=== PATIENT | female | born 1930 | race African-American/Black ===

== ENCOUNTER 2020-08-23 21:34 | Inpatient (IN) | payer OTHER ==
[2020-08-23] MEDS ORDERED: FUROSEMIDE 40 MG/4 ML INJECTABLE VIAL IVPUSH ONE (22:32)
[2020-08-23] MEDS ORDERED: FUROSEMIDE 40 MG/4 ML INJECTABLE VIAL ONE (22:36)
[2020-08-23 23:20] LABS: BASO % 0.9 % (0-2.0); EOS % 1.2 % (0-4.5); HEMATOCRIT 35.8 % (32.4-45.2); HEMOGLOBIN 11.1 GM/dL (10.7-15.3); LYMPH % 24.7 % (8-40); MCH 24.1 pg (25.7-33.7); MCHC 31.1 g/dl (32.0-36.0); MEAN CELL VOLUME 77.6 fl (80-96); MEAN PLT VOLUME 8.6 fl (7.5-11.1); MONO % 15.4 % (3.8-10.2); NEUT % 57.8 % (42.8-82.8); PLATELET COUNT 295 K/MM3 (134-434); RBC 4.61 M/mm3 (3.60-5.2); RDW 18.7 % (11.6-15.6); WHITE BLOOD COUNT 5.1 K/mm3 (4.0-10.0)
[2020-08-23 23:29] LABS: INR 1.55 (0.83-1.09); PROTHROMBIN TIME (PATIENT) 18.5 SEC (9.7-13.0)
[2020-08-23 23:32] LABS: ACTIVATED PTT 31.7 SECONDS (25.2-36.5)
[2020-08-23 23:44] LABS: CALCIUM 9.3 mg/dL (8.5-10.1)
[2020-08-23 23:45] LABS: ALBUMIN 3.1 g/dl (3.4-5.0); BLOOD UREA NITROGEN 34.4 mg/dL (7-18)
[2020-08-23 23:48] LABS: CREATININE 1.3 mg/dL (0.55-1.3)
[2020-08-23 23:49] LABS: BILIRUBIN,TOTAL 0.7 mg/dL (0.2-1); TOT PROT 7.2 g/dl (6.4-8.2)
[2020-08-23 23:53] LABS: N-TERMINAL BNP 17053.1 pg/ml (5-450)
[2020-08-23] MEDS ORDERED: AZITHROMYCIN IVPB 500 MG in DEXTROSE 5%-WATER - 250 ML IVPB ONE (23:57)
[2020-08-23] MEDS ORDERED: CEFTRIAXONE 1 GM in DEXTROSE 5%-WATER - 100 ML IVPB ONE (23:57)
[2020-08-24 00:56] LABS: PH,URINE 6.5 (5.0-8.0); URINE APPEARANCE CLEAR; URINE BILIRUBIN NEGATIVE (NEGATIVE); URINE COLOR YELLOW; URINE GLUCOSE (UA) NEGATIVE (NEGATIVE); URINE KETONE NEGATIVE (NEGATIVE); URINE LEUK ESTERASE NEGATIVE (NEGATIVE); URINE NITRITE NEGATIVE (NEGATIVE); URINE PROTEIN NEGATIVE (NEGATIVE); URINE UROBILINOGEN 0.2 mg/dL (0.2-1.0)
[2020-08-24] MEDS ORDERED: AZITHROMYCIN IVPB 500 MG/250 ML BAG IVPB ONE (01:34)
[2020-08-24] MEDS ORDERED: CEFTRIAXONE 1 GM/50 ML BAG ONE (01:34)
[2020-08-24] MEDS ORDERED: PATIENT'S OWN MEDICATION (NON-FORMULARY) (Ipratropium Bromide [Atrovent Hfa] 12.9 GM Hfa.A IH PRN (05:29)
[2020-08-24] MEDS ORDERED: ALBUTEROL SO4 2.5/IPRATROPIUM 0.5 INH SOL 3 ML VIAL.NEB. NEB PRN (05:29)
[2020-08-24] MEDS: FUROSEMIDE 40 MG/4 ML INJECTABLE VIAL IVPUSH SCH ×2 (08:13→16:17)
[2020-08-24] MEDS: SPIRONOLACTONE 25 MG TABLET PO SCH (09:10)
[2020-08-24] MEDS: GABAPENTIN 100 MG CAPSULE PO SCH ×2 (09:12→22:15)
[2020-08-24] MEDS: SENNOSIDES 8.6MG TABLET (FP) PO SCH (09:12)
[2020-08-24] MEDS: LORazepam 0.5 MG TABLET PO SCH ×2 (09:12→22:15)
[2020-08-24] MEDS ORDERED: PT OWN MED DRAWER 7, Y5N ONE (09:16)
[2020-08-24] MEDS: DOCUSATE SODIUM 100 MG CAPSULE (FP) PO SCH (09:19)
[2020-08-24] MEDS ORDERED: METOLAZONE 5 MG TABLET PO SCH (09:30)
[2020-08-24] MEDS ORDERED: FUROSEMIDE 40 MG TABLET (FP) PO SCH (10:00)
[2020-08-24] MEDS ORDERED: LIDOCAINE TP SCH (10:00)
[2020-08-24] MEDS ORDERED: [UNRECOGNIZED DRUG - OTHER] TP SCH (10:00)
[2020-08-24] MEDS ORDERED: METOLAZONE 10 MG PO SCH (10:00)
[2020-08-24] MEDS ORDERED: DOXYCYCLINE HYCLATE 100 MG VIAL ONE ×2 (13:10→21:51)
[2020-08-24] MEDS ORDERED: DEXTROSE 5%-WATER 100 ML IVPB ONE ×3 (13:10→21:51)
[2020-08-24] MEDS: CEFTRIAXONE 2 GM in DEXTROSE 5%-WATER 2 GM/100 ML BAG IVPB SCH (13:15)
[2020-08-24] MEDS: DOXYCYCLINE INJECTION 100 MG in DEXTROSE 5%-WATER 100 ML IVPB SCH ×2 (13:25→22:15)
[2020-08-24] MEDS: INSULIN SLIDING SCALE (NOVOLOG) 1 VIAL SQ SCH ×2 (18:20→22:15)
[2020-08-24] MEDS: ATORVASTATIN CA 20 MG TABLET (FP) PO SCH (22:15)
[2020-08-25] MEDS ORDERED: ONDANSETRON 4 MG/2 ML VIAL IVPUSH PRN (02:45)
[2020-08-25] MEDS ORDERED: PROMETHAZINE HCL 25 MG/1 ML VIAL IVPUSH PRN (03:12)
[2020-08-25 07:02] LABS: INR 1.35 (0.83-1.09); PROTHROMBIN TIME (PATIENT) 16.5 SEC (9.7-13.0)
[2020-08-25] MEDS: INSULIN SLIDING SCALE (NOVOLOG) 1 VIAL SQ SCH ×4 (07:03→21:49)
[2020-08-25 07:06] LABS: HEMATOCRIT 35.5 % (32.4-45.2); MCH 23.9 pg (25.7-33.7); MEAN CELL VOLUME 77.3 fl (80-96); MEAN PLT VOLUME 8.6 fl (7.5-11.1); PLATELET COUNT 247 K/MM3 (134-434); RBC 4.59 M/mm3 (3.60-5.2); RDW 18.7 % (11.6-15.6); WHITE BLOOD COUNT 4.5 K/mm3 (4.0-10.0)
[2020-08-25 07:13] LABS: CALCIUM 9.2 mg/dL (8.5-10.1)
[2020-08-25 07:14] LABS: ALBUMIN 2.6 g/dl (3.4-5.0); BLOOD UREA NITROGEN 29.6 mg/dL (7-18)
[2020-08-25 07:18] LABS: BILIRUBIN,TOTAL 0.6 mg/dL (0.2-1); TOT PROT 6.4 g/dl (6.4-8.2)
[2020-08-25] MEDS: METOLAZONE 5 MG TABLET PO SCH (08:25)
[2020-08-25] MEDS: FUROSEMIDE 40 MG/4 ML INJECTABLE VIAL IVPUSH SCH ×3 (09:01→17:20)
[2020-08-25] MEDS ORDERED: DOXYCYCLINE HYCLATE 100 MG VIAL ONE ×2 (09:50→21:04)
[2020-08-25] MEDS ORDERED: DEXTROSE 5%-WATER 100 ML IVPB ONE ×3 (09:51→21:04)
[2020-08-25] MEDS ORDERED: PT OWN MED DRAWER 7, Y5N ONE (09:51)
[2020-08-25] MEDS: SENNOSIDES 8.6MG TABLET (FP) PO SCH (09:55)
[2020-08-25] MEDS: SPIRONOLACTONE 25 MG TABLET PO SCH (09:55)
[2020-08-25] MEDS: CEFTRIAXONE 2 GM in DEXTROSE 5%-WATER 2 GM/100 ML BAG IVPB SCH (09:55)
[2020-08-25] MEDS: LORazepam 0.5 MG TABLET PO SCH ×2 (09:55→21:48)
[2020-08-25] MEDS: GABAPENTIN 100 MG CAPSULE PO SCH ×2 (09:55→21:48)
[2020-08-25] MEDS: DOCUSATE SODIUM 100 MG CAPSULE (FP) PO SCH (09:56)
[2020-08-25] MEDS: DOXYCYCLINE INJECTION 100 MG in DEXTROSE 5%-WATER 100 ML IVPB SCH ×2 (11:10→21:49)
[2020-08-25] MEDS: ATORVASTATIN CA 20 MG TABLET (FP) PO SCH (21:48)
[2020-08-26] MEDS: INSULIN SLIDING SCALE (NOVOLOG) 1 VIAL SQ SCH ×4 (06:16→22:59)
[2020-08-26] MEDS: METOLAZONE 5 MG TABLET PO SCH (08:30)
[2020-08-26] MEDS: FUROSEMIDE 40 MG/4 ML INJECTABLE VIAL IVPUSH SCH ×2 (09:00→15:52)
[2020-08-26] MEDS ORDERED: PT OWN MED DRAWER 7, Y5N ONE (09:08)
[2020-08-26] MEDS ORDERED: DEXTROSE 5%-WATER 100 ML IVPB ONE (09:08)
[2020-08-26] MEDS: LORazepam 0.5 MG TABLET PO SCH ×2 (09:21→22:59)
[2020-08-26] MEDS: SENNOSIDES 8.6MG TABLET (FP) PO SCH (09:21)
[2020-08-26] MEDS: CEFTRIAXONE 2 GM in DEXTROSE 5%-WATER 2 GM/100 ML BAG IVPB SCH (09:22)
[2020-08-26] MEDS: SPIRONOLACTONE 25 MG TABLET PO SCH (09:22)
[2020-08-26] MEDS: GABAPENTIN 100 MG CAPSULE PO SCH ×2 (09:22→22:59)
[2020-08-26] MEDS: DOCUSATE SODIUM 100 MG CAPSULE (FP) PO SCH (09:22)
[2020-08-26 10:33] LABS: BASO % 2.8 % (0-2.0); EOS % 2.1 % (0-4.5); HEMATOCRIT 37.8 % (32.4-45.2); HEMOGLOBIN 11.7 GM/dL (10.7-15.3); LYMPH % 24.8 % (8-40); MCH 23.9 pg (25.7-33.7); MCHC 30.9 g/dl (32.0-36.0); MEAN CELL VOLUME 77.5 fl (80-96); MEAN PLT VOLUME 8.5 fl (7.5-11.1); NEUT % 57.3 % (42.8-82.8); PLATELET COUNT 256 K/MM3 (134-434); RBC 4.88 M/mm3 (3.60-5.2); RDW 18.7 % (11.6-15.6); WHITE BLOOD COUNT 4.4 K/mm3 (4.0-10.0)
[2020-08-26 10:45] LABS: CALCIUM 9.7 mg/dL (8.5-10.1)
[2020-08-26 10:47] LABS: ALBUMIN 2.7 g/dl (3.4-5.0); BLOOD UREA NITROGEN 21.6 mg/dL (7-18)
[2020-08-26 10:50] LABS: CREATININE 0.8 mg/dL (0.55-1.3)
[2020-08-26 10:51] LABS: BILIRUBIN,TOTAL 0.7 mg/dL (0.2-1); TOT PROT 6.4 g/dl (6.4-8.2)
[2020-08-26] MEDS: ACETAMINOPHEN 325 MG TABLET (FP) PO PRN (22:58)
[2020-08-26] MEDS: ATORVASTATIN CA 20 MG TABLET (FP) PO SCH (22:59)
[2020-08-27] MEDS: INSULIN SLIDING SCALE (NOVOLOG) 1 VIAL SQ SCH ×4 (06:23→21:21)
[2020-08-27] MEDS: METOLAZONE 5 MG TABLET PO SCH (06:44)
[2020-08-27 07:14] LABS: BASO % 0.4 % (0-2.0); EOS % 2.4 % (0-4.5); HEMOGLOBIN 11.3 GM/dL (10.7-15.3); LYMPH % 30.8 % (8-40); MCH 23.8 pg (25.7-33.7); MCHC 31.2 g/dl (32.0-36.0); MEAN CELL VOLUME 76.1 fl (80-96); MEAN PLT VOLUME 8.1 fl (7.5-11.1); MONO % 15.4 % (3.8-10.2); PLATELET COUNT 261 K/MM3 (134-434); RBC 4.74 M/mm3 (3.60-5.2); RDW 18.4 % (11.6-15.6); WHITE BLOOD COUNT 4.5 K/mm3 (4.0-10.0)
[2020-08-27 07:38] LABS: ALBUMIN 2.8 g/dl (3.4-5.0); BLOOD UREA NITROGEN 25.7 mg/dL (7-18); CALCIUM 9.5 mg/dL (8.5-10.1)
[2020-08-27 07:43] LABS: BILIRUBIN,TOTAL 0.6 mg/dL (0.2-1); TOT PROT 6.8 g/dl (6.4-8.2)
[2020-08-27] MEDS ORDERED: DEXTROSE 5%-WATER 100 ML IVPB ONE (09:17)
[2020-08-27] MEDS: GABAPENTIN 100 MG CAPSULE PO SCH ×2 (09:39→21:22)
[2020-08-27] MEDS: SPIRONOLACTONE 25 MG TABLET PO SCH (09:39)
[2020-08-27] MEDS: SENNOSIDES 8.6MG TABLET (FP) PO SCH (09:39)
[2020-08-27] MEDS: LORazepam 0.5 MG TABLET PO SCH ×2 (09:39→21:22)
[2020-08-27] MEDS: FUROSEMIDE 40 MG/4 ML INJECTABLE VIAL IVPUSH SCH ×2 (09:39→16:06)
[2020-08-27] MEDS: CEFTRIAXONE 2 GM in DEXTROSE 5%-WATER 2 GM/100 ML BAG IVPB SCH (09:40)
[2020-08-27] MEDS: DOCUSATE SODIUM 100 MG CAPSULE (FP) PO SCH (10:49)
[2020-08-27] MEDS: ATORVASTATIN CA 20 MG TABLET (FP) PO SCH (21:22)
[2020-08-28] MEDS: INSULIN SLIDING SCALE (NOVOLOG) 1 VIAL SQ SCH ×4 (06:08→21:27)
[2020-08-28] MEDS ORDERED: DEXTROSE 5%-WATER 100 ML IVPB ONE (08:43)
[2020-08-28] MEDS: CEFTRIAXONE 2 GM in DEXTROSE 5%-WATER 2 GM/100 ML BAG IVPB SCH (09:14)
[2020-08-28] MEDS: SENNOSIDES 8.6MG TABLET (FP) PO SCH (09:14)
[2020-08-28] MEDS: METOLAZONE 5 MG TABLET PO SCH (09:15)
[2020-08-28] MEDS: LORazepam 0.5 MG TABLET PO SCH ×2 (09:15→21:17)
[2020-08-28] MEDS: GABAPENTIN 100 MG CAPSULE PO SCH ×2 (09:15→21:18)
[2020-08-28] MEDS: SPIRONOLACTONE 25 MG TABLET PO SCH (09:15)
[2020-08-28] MEDS: FUROSEMIDE 40 MG/4 ML INJECTABLE VIAL IVPUSH SCH ×2 (10:12→16:22)
[2020-08-28] MEDS: DOCUSATE SODIUM 100 MG CAPSULE (FP) PO SCH (14:09)
[2020-08-28] MEDS: ACETAMINOPHEN 325 MG TABLET (FP) PO PRN (21:17)
[2020-08-28] MEDS: ATORVASTATIN CA 20 MG TABLET (FP) PO SCH (21:18)
[2020-08-29] MEDS: INSULIN SLIDING SCALE (NOVOLOG) 1 VIAL SQ SCH ×4 (06:49→21:29)
[2020-08-29] MEDS: FUROSEMIDE 40 MG/4 ML INJECTABLE VIAL IVPUSH SCH ×2 (08:15→16:54)
[2020-08-29] MEDS: METOLAZONE 5 MG TABLET PO SCH (08:15)
[2020-08-29] MEDS ORDERED: DEXTROSE 5%-WATER 100 ML IVPB ONE (09:24)
[2020-08-29] MEDS ORDERED: PT OWN MED DRAWER 7, Y5N ONE (09:24)
[2020-08-29] MEDS: CEFTRIAXONE 2 GM in DEXTROSE 5%-WATER 2 GM/100 ML BAG IVPB SCH (09:26)
[2020-08-29] MEDS: LORazepam 0.5 MG TABLET PO SCH ×2 (09:26→21:29)
[2020-08-29] MEDS: GABAPENTIN 100 MG CAPSULE PO SCH ×2 (09:26→21:29)
[2020-08-29] MEDS: DOCUSATE SODIUM 100 MG CAPSULE (FP) PO SCH (09:26)
[2020-08-29] MEDS: SENNOSIDES 8.6MG TABLET (FP) PO SCH (09:26)
[2020-08-29] MEDS: SPIRONOLACTONE 25 MG TABLET PO SCH (09:26)
[2020-08-29 10:17] LABS: BASO % 1.2 % (0-2.0); EOS % 2.2 % (0-4.5); HEMATOCRIT 36.9 % (32.4-45.2); HEMOGLOBIN 11.7 GM/dL (10.7-15.3); LYMPH % 25.1 % (8-40); MCH 23.9 pg (25.7-33.7); MCHC 31.7 g/dl (32.0-36.0); MEAN CELL VOLUME 75.3 fl (80-96); MONO % 12.8 % (3.8-10.2); NEUT % 58.7 % (42.8-82.8); PLATELET COUNT 278 K/MM3 (134-434); RBC 4.89 M/mm3 (3.60-5.2); RDW 18.3 % (11.6-15.6); WHITE BLOOD COUNT 5.4 K/mm3 (4.0-10.0)
[2020-08-29 10:40] LABS: CALCIUM 9.8 mg/dL (8.5-10.1)
[2020-08-29 10:41] LABS: BLOOD UREA NITROGEN 29.9 mg/dL (7-18)
[2020-08-29 10:44] LABS: CREATININE 0.9 mg/dL (0.55-1.3)
[2020-08-29 10:46] LABS: BILIRUBIN,TOTAL 0.5 mg/dL (0.2-1); TOT PROT 7.6 g/dl (6.4-8.2)
[2020-08-29 13:49] VITALS: BMI 20.1
[2020-08-29 14:08] LABS: ANISOCYTOSIS 1+; MACROCYTOSIS 0; PLATELET ESTIMATE NORMAL
[2020-08-29] MEDS: ATORVASTATIN CA 20 MG TABLET (FP) PO SCH (21:29)
[2020-08-30] MEDS: INSULIN SLIDING SCALE (NOVOLOG) 1 VIAL SQ SCH ×4 (06:30→22:35)
[2020-08-30] MEDS: METOLAZONE 5 MG TABLET PO SCH (06:31)
[2020-08-30] MEDS: FUROSEMIDE 40 MG/4 ML INJECTABLE VIAL IVPUSH SCH (08:01)
[2020-08-30 08:36] LABS: CALCIUM 9.6 mg/dL (8.5-10.1)
[2020-08-30 08:37] LABS: ALBUMIN 3.1 g/dl (3.4-5.0); BLOOD UREA NITROGEN 33.8 mg/dL (7-18)
[2020-08-30 08:40] LABS: CREATININE 0.9 mg/dL (0.55-1.3)
[2020-08-30 08:42] LABS: BILIRUBIN,TOTAL 0.6 mg/dL (0.2-1); TOT PROT 7.6 g/dl (6.4-8.2)
[2020-08-30] MEDS ORDERED: PT OWN MED DRAWER 7, Y5N ONE (09:26)
[2020-08-30] MEDS ORDERED: DEXTROSE 5%-WATER 100 ML IVPB ONE (09:27)
[2020-08-30] MEDS: GABAPENTIN 100 MG CAPSULE PO SCH ×2 (09:30→21:43)
[2020-08-30] MEDS: CEFTRIAXONE 2 GM in DEXTROSE 5%-WATER 2 GM/100 ML BAG IVPB SCH (09:30)
[2020-08-30] MEDS: DOCUSATE SODIUM 100 MG CAPSULE (FP) PO SCH (09:30)
[2020-08-30] MEDS: LORazepam 0.5 MG TABLET PO SCH ×2 (09:30→21:43)
[2020-08-30] MEDS: SENNOSIDES 8.6MG TABLET (FP) PO SCH (09:30)
[2020-08-30] MEDS: SPIRONOLACTONE 25 MG TABLET PO SCH (09:30)
[2020-08-30] MEDS: FUROSEMIDE 40 MG TABLET (FP) PO SCH (13:28)
[2020-08-30] MEDS ORDERED: FUROSEMIDE 40 MG TABLET (FP) PO SCH (14:00)
[2020-08-30] MEDS: ATORVASTATIN CA 20 MG TABLET (FP) PO SCH (21:43)
[2020-08-31] MEDS: FUROSEMIDE 40 MG TABLET (FP) PO SCH ×2 (05:47→14:36)
[2020-08-31] MEDS: METOLAZONE 5 MG TABLET PO SCH (07:13)
[2020-08-31] MEDS: INSULIN SLIDING SCALE (NOVOLOG) 1 VIAL SQ SCH ×4 (08:28→22:33)
[2020-08-31] MEDS ORDERED: DEXTROSE 5%-WATER 100 ML IVPB ONE (09:15)
[2020-08-31] MEDS: LORazepam 0.5 MG TABLET PO SCH ×2 (10:01→22:31)
[2020-08-31] MEDS: SPIRONOLACTONE 25 MG TABLET PO SCH (10:01)
[2020-08-31] MEDS: CEFTRIAXONE 2 GM in DEXTROSE 5%-WATER 2 GM/100 ML BAG IVPB SCH (10:01)
[2020-08-31] MEDS: GABAPENTIN 100 MG CAPSULE PO SCH ×2 (10:02→22:32)
[2020-08-31] MEDS: DOCUSATE SODIUM 100 MG CAPSULE (FP) PO SCH (10:02)
[2020-08-31] MEDS: SENNOSIDES 8.6MG TABLET (FP) PO SCH (10:03)
[2020-08-31] MEDS ORDERED: PT OWN MED DRAWER 7, Y5N ONE (18:30)
[2020-08-31] MEDS: ATORVASTATIN CA 20 MG TABLET (FP) PO SCH (22:32)
[2020-09-01] MEDS ORDERED: MELATONIN 5 MG TABLETS PO ONE (00:15)
[2020-09-01] MEDS: FUROSEMIDE 40 MG TABLET (FP) PO SCH ×2 (06:20→15:20)
[2020-09-01] MEDS: INSULIN SLIDING SCALE (NOVOLOG) 1 VIAL SQ SCH ×4 (06:21→21:05)
[2020-09-01] MEDS ORDERED: DEXTROSE 5%-WATER 100 ML IVPB ONE (08:41)
[2020-09-01] MEDS: LORazepam 0.5 MG TABLET PO SCH ×2 (09:11→21:05)
[2020-09-01] MEDS: METOLAZONE 5 MG TABLET PO SCH (09:11)
[2020-09-01] MEDS: GABAPENTIN 100 MG CAPSULE PO SCH ×2 (09:11→21:05)
[2020-09-01] MEDS: SPIRONOLACTONE 25 MG TABLET PO SCH (09:11)
[2020-09-01] MEDS: DOCUSATE SODIUM 100 MG CAPSULE (FP) PO SCH (09:11)
[2020-09-01] MEDS: SENNOSIDES 8.6MG TABLET (FP) PO SCH (09:12)
[2020-09-01] MEDS: CEFTRIAXONE 2 GM in DEXTROSE 5%-WATER 2 GM/100 ML BAG IVPB SCH (09:13)
[2020-09-01] MEDS ORDERED: INSULIN (NOVOLOG) ASPART 100 UNITS/ML 10ML VIAL ONE (11:04)
[2020-09-01] MEDS: MELATONIN 5 MG TABLETS PO PRN (21:05)
[2020-09-01] MEDS: ATORVASTATIN CA 20 MG TABLET (FP) PO SCH (21:05)
[2020-09-02] MEDS: FUROSEMIDE 40 MG TABLET (FP) PO SCH ×2 (05:20→13:10)
[2020-09-02] MEDS: INSULIN SLIDING SCALE (NOVOLOG) 1 VIAL SQ SCH ×4 (06:25→23:00)
[2020-09-02] MEDS: METOLAZONE 5 MG TABLET PO SCH (07:04)
[2020-09-02 08:19] LABS: HEMATOCRIT 35.4 % (32.4-45.2); HEMOGLOBIN 11.2 GM/dL (10.7-15.3); MCH 23.6 pg (25.7-33.7); MCHC 31.7 g/dl (32.0-36.0); MEAN CELL VOLUME 74.3 fl (80-96); MEAN PLT VOLUME 8.1 fl (7.5-11.1); PLATELET COUNT 266 K/MM3 (134-434); RBC 4.76 M/mm3 (3.60-5.2); RDW 18.3 % (11.6-15.6); WHITE BLOOD COUNT 4.5 K/mm3 (4.0-10.0)
[2020-09-02 08:40] LABS: CALCIUM 9.7 mg/dL (8.5-10.1)
[2020-09-02 08:41] LABS: ALBUMIN 3.2 g/dl (3.4-5.0); BLOOD UREA NITROGEN 47.6 mg/dL (7-18)
[2020-09-02 08:45] LABS: BILIRUBIN,TOTAL 0.5 mg/dL (0.2-1)
[2020-09-02 08:46] LABS: TOT PROT 7.6 g/dl (6.4-8.2)
[2020-09-02] MEDS: DOCUSATE SODIUM 100 MG CAPSULE (FP) PO SCH (09:14)
[2020-09-02] MEDS: ACETAMINOPHEN 325 MG TABLET (FP) PO PRN (09:14)
[2020-09-02] MEDS: GABAPENTIN 100 MG CAPSULE PO SCH ×2 (09:15→22:52)
[2020-09-02] MEDS: SPIRONOLACTONE 25 MG TABLET PO SCH (09:15)
[2020-09-02] MEDS: SENNOSIDES 8.6MG TABLET (FP) PO SCH (09:16)
[2020-09-02] MEDS: LORazepam 0.5 MG TABLET PO SCH ×2 (09:16→22:52)
[2020-09-02] MEDS: ATORVASTATIN CA 20 MG TABLET (FP) PO SCH (22:52)
[2020-09-03] MEDS: MELATONIN 5 MG TABLETS PO PRN ×2 (00:14→22:30)
[2020-09-03] MEDS ORDERED: diphenhydrAMINE HCL 25 MG CAPSULE (FP) PO ONE (03:15)
[2020-09-03] MEDS: FUROSEMIDE 40 MG TABLET (FP) PO SCH ×2 (05:25→14:02)
[2020-09-03] MEDS: INSULIN SLIDING SCALE (NOVOLOG) 1 VIAL SQ SCH ×4 (06:43→22:36)
[2020-09-03] MEDS: LORazepam 0.5 MG TABLET PO SCH ×2 (09:00→22:32)
[2020-09-03] MEDS: METOLAZONE 5 MG TABLET PO SCH (09:00)
[2020-09-03] MEDS: SPIRONOLACTONE 25 MG TABLET PO SCH (09:00)
[2020-09-03] MEDS: SENNOSIDES 8.6MG TABLET (FP) PO SCH (09:00)
[2020-09-03] MEDS: DOCUSATE SODIUM 100 MG CAPSULE (FP) PO SCH (09:00)
[2020-09-03] MEDS: GABAPENTIN 100 MG CAPSULE PO SCH ×2 (09:00→22:30)
[2020-09-03] MEDS: ATORVASTATIN CA 20 MG TABLET (FP) PO SCH (22:30)
[2020-09-04] MEDS: ACETAMINOPHEN 325 MG TABLET (FP) PO PRN ×2 (02:34→14:00)
[2020-09-04] MEDS ORDERED: MELATONIN 5 MG TABLETS PO ONE (03:40)
[2020-09-04] MEDS: FUROSEMIDE 40 MG TABLET (FP) PO SCH ×2 (05:46→14:00)
[2020-09-04] MEDS: INSULIN SLIDING SCALE (NOVOLOG) 1 VIAL SQ SCH ×3 (06:41→17:15)
[2020-09-04] MEDS ORDERED: PT OWN MED DRAWER 7, Y5N ONE (09:00)
[2020-09-04] MEDS: LORazepam 0.5 MG TABLET PO SCH (09:42)
[2020-09-04] MEDS: METOLAZONE 5 MG TABLET PO SCH (09:44)
[2020-09-04] MEDS: GABAPENTIN 100 MG CAPSULE PO SCH (09:44)
[2020-09-04] MEDS: DOCUSATE SODIUM 100 MG CAPSULE (FP) PO SCH (09:44)
[2020-09-04] MEDS: SENNOSIDES 8.6MG TABLET (FP) PO SCH (09:44)
[2020-09-04] MEDS: SPIRONOLACTONE 25 MG TABLET PO SCH (09:44)
[2020-09-04 18:05] VITALS: BP 94/65; PULSE 81; TEMP 98.6
== END 2020-09-04 18:35 | DRG 291 ==
LOC: JER 21:34 → JERBED 23:57 → J2W 08-24 02:55 → J7W 08-31 21:20
PROVIDERS: ADMIT Hospitalist; ATTEND Family Medicine
DX: I13.0 Hypertensive heart and chronic kidney disease with heart failure and stage 1 through stage 4 chronic kidney disease, or unspecified chronic kidney disease (principal); I50.23 Acute on chronic systolic (congestive) heart failure; J18.9 Pneumonia, unspecified organism; G93.41 Metabolic encephalopathy; G81.94 Hemiplegia, unspecified affecting left nondominant side; J98.11 Atelectasis; R18.8 Other ascites; I25.10 Atherosclerotic heart disease of native coronary artery without angina pectoris; E11.22 Type 2 diabetes mellitus with diabetic chronic kidney disease; N18.9 Chronic kidney disease, unspecified; F03.90 Unspecified dementia, unspecified severity, without behavioral disturbance, psychotic disturbance, mood disturbance, and anxiety; R09.02 Hypoxemia; R41.82 Altered mental status, unspecified
CPT/HCPCS: 36415; 71045-TC-FY; 80053; 81003; 82550; 82962; 83880; 84484; 85025; 85027; 85610; 85730; 87040; 87086; 87899; 93005; 93010; 93306-TC; 93970-TC; 97116-GP; 97161-GP; 99285-25; C9803; U0003; U0005